=== PATIENT | female | born 1945 | race Hispanic/Latino ===

== ENCOUNTER → 2020-06-15 | Outpatient (CLI) | payer MEDICARE ==
[~2020-06-15] MED LIST: GADOBENATE DIMEGLUMINE 1 ML IV ONE; SODIUM CHLORIDE 0.9% 100 ML ONE
[2020-06-15 12:54] LABS: BLOOD UREA NITROGEN 7 mg/dL (7-26); BUN/CREATININE RATIO 9 (6-25); CREATININE, SERUM 0.76 mg/dL (0.57-1.11); EST GLOMERULAR FILTRATION RATE > 60 ML/MIN (60-)
--- NOTE | 2020-06-21 10:06 | Diagnostic Imaging Report ---
MRI ABDOMEN WOW HISTORY: ^HX OF PANCREATITIS COMPARISON: None. TECHNIQUE: MRI of the abdomen with exam tailored to evaluate the biliary tree and the pancreas was performed with and without intravenous gadolinium-based contrast. Multiplanar, multisequence images, including heavily T2-weighted MRCP sequences were obtained. FINDINGS: Hepatobiliary Findings: Bile ducts: Normal in caliber with no intraluminal filling defects. No strictures or dilated intra- or extrahepatic bile ducts. Liver: Normal signal and contour. No hepatic mass. Gallbladder: Surgically absent. Pancreas: Mildly atrophic. Two sub 3 mm T2 hyper intense foci adjacent to the main pancreatic duct in the body of the pancreas (series 12 images 13 and 14), no pancreatic ductal dilation Additional Findings: Lung bases: Asymmetric elevation of the right hemidiaphragm. Spleen: Unremarkable. Small accessory splenule noted. Adrenals: Unremarkable Kidneys and ureters: Unremarkable. Bowel: Unremarkable. Lymph nodes: Unremarkable. Peritoneum: Unremarkable. Vessels: Unremarkable Abdominal wall: Punctate susceptibly artifact in the right breast, possibly calcification or surgical clip. Additional larger focus of susceptibility artifact projecting over the midline lower lumbar spine, possibly external to the patient Bones: Unremarkable. IMPRESSION: 1. Surgically absent gallbladder. No intra or extrahepatic biliary ductal dilation. No biliary strictures or filling defects. 2. 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 No pancreatic ductal dilation. Consider 1 year follow-up MRCP preferably on a higher quality magnet. 3. Otherwise unremarkable MRCP.. Signed by: Paulino Crook MD on 06/21/2020 10:03 AM
== END ==
LOC: MRI 12:06
PROVIDERS: ATTEND Internal Medicine Gastroenterology
DX: Z85.07 Personal history of malignant neoplasm of pancreas (principal)
CPT/HCPCS: 36415; 74183; 82565; 84520; J7050